=== PATIENT | male | born 1985 | race Caucasian/White ===

== ENCOUNTER 2020-06-26 05:43 | Day surgery (SDC) | payer BC ==
[~2020-06-26] VITALS: Ht 185.4 cm; Wt 115.7 kg
--- NOTE | ~2020-06-26 | OP ---
PATIENT NAME: RUPERTO SWARTZ MEDICAL RECORD: [id number] LOCATION:[facility] ADMISSION DATE: SURGEON: ROBIN RODRIGUEZ MD DATE OF OPERATION: 06/26/2020 PREOPERATIVE DIAGNOSES: 1. Right knee pain. 2. Anterior cruciate ligament tear. 3. Lateral meniscus tear. 4. Chondromalacia. POSTOPERATIVE DIAGNOSES: 1. Right knee pain. 2. Anterior cruciate ligament tear. 3. Lateral meniscus tear. 4. Chondromalacia. PROCEDURE PERFORMED: Right knee scope with partial lateral meniscectomy, chondroplasty, and limited synovectomy. INDICATIONS FOR THE PROCEDURE: Mr. Swartz is a 34-year-old male who injured his right knee playing soccer approximately 1 year ago. He sustained an ACL tear as well as damage to the lateral meniscus. He has been treating this conservatively, but is having more pain in the knee and would like to proceed with surgery for knee scope with partial meniscectomy. He would like to hold off on the ACL repair at this time. Risks, benefits and alternatives of surgery were discussed with the patient and consent was obtained. DESCRIPTION OF THE PROCEDURE: The patient was met in the holding area where his identity and confirmation of procedure was performed. The right lower extremity was marked. He was taken to the operating room where he was placed supine on the operating table, and anesthesia was administered. Tourniquet was applied to the right thigh and the right leg was positioned in the leg parr. Right lower extremity was prepped and draped in sterile fashion. The patient received preoperative antibiotics and timeout was performed before initiating the case. On initiation of the case, the leg was exsanguinated and tourniquet was raised. Total tourniquet time was 50 minutes. We began with placement of superior medial portal, inserted the cannula and filled the knee with fluid. We then placed our anterolateral portal and inserted the camera and placed our anterior medial portal under direct visualization. Diagnostic knee arthroscopy was performed. There were multiple small loose bodies throughout the knee as well as synovitis. The patella demonstrated grade I chondromalacia at its undersurface, the trochlea was in good condition. There were some small loose bodies in the medial gutter. The medial compartment was in good condition with just some grade I chondromalacia at the edge of the medial femoral condyle. The meniscus was intact. The ACL was torn at the femoral attachment with some strands remaining, but they were loose under tension. The lateral compartment showed a complex tear in the posterior horn to the root of the lateral meniscus. Lateral femoral condyle was in good condition and grade I chondromalacia of the lateral tibial plateau. A biter and shaver were used to perform a partial lateral meniscectomy. Shaver was also used to perform a limited synovectomy of the tissues at the anterior knee and the infrapatellar fat pad. There were also some scarring in the suprapatellar pouch that was debrided and multiple loose bodies were able to be removed with the shaver as well. The chondroplasty was also performed at the edge of the medial femoral condyle at the undersurface of OPERATIVE REPORT [id number] RUPERTO SWARTZAL the patella. This completed our procedure. Before and after images were obtained. Instruments were removed and fluid was drained from the knee. The portal sites were injected with 0.25% Marcaine with epinephrine. These were then closed with nylon suture. A sterile dressing was placed. The patient was turned back over to anesthesia where he was awakened, extubated, and taken to recovery room in stable condition. POSTOPERATIVE PLAN: The patient is going to return home with his family today. He may be weightbearing as tolerated on the right lower extremity. We will get him started with physical therapy in the next 2-3 days. Plan to see him back in clinic in 2 weeks. ANESTHESIA: General. COMPLICATIONS: None. ESTIMATED BLOOD LOSS: 10 mL. TRANSINT:[id number] Voice Confirmation ID: [id number] DOCUMENT ID: [id number] ROBIN RODRIGUEZ MD CC: [id number] DICTATION DATE: 06/26/20 1159 RN FAMILY PRACTICE: 06/26/20 1301 [facility] 06/26/20 [place] [id number] [place] [id number]
[2020-06-26 06:46] VITALS: BP 126/65; Ht 185.4 cm; Wt 115.7 kg
--- NOTE | 2020-06-26 10:56 | NUR ---
IV D/C'D WITH CANNULA INTACT, PRESSURE HELD AND DRSG PLACED. DISCHARGE INSTRUCTION GIVEN AND BOTH PT AND VERBALIZED AN UNDERSTANDING. DRSG CDI, PAIN TOLERABLE
== END 2020-06-26 10:52 | disposition home or self-care (01) ==
LOC: D.OPS 05:43
PROVIDERS: ATTEND Orthopaedic Surgery
DX: M25.561 Pain in right knee (principal); S83.281A Other tear of lateral meniscus, current injury, right knee, initial encounter; X58.XXXA Exposure to other specified factors, initial encounter; M94.20 Chondromalacia, unspecified site; S83.511D Sprain of anterior cruciate ligament of right knee, subsequent encounter

== ENCOUNTER 2020-06-26 18:32 | Emergency (ER) | payer BC ==
[2020-06-26 18:56] VITALS: BP 126/74; Ht 185.4 cm
== END 2020-06-26 19:29 | disposition home or self-care (01) ==
LOC: D.ER 18:32
DX: G89.18 Other acute postprocedural pain (principal); J45.909 Unspecified asthma, uncomplicated; M25.561 Pain in right knee